=== PATIENT | male | born 1980 | race Caucasian/White ===

== ENCOUNTER 2017-09-19 03:44 | Emergency (ER) | payer SELFPAY ==
[2017-09-19] MEDS ORDERED: Adacel (T-DAP) 0.5 ML VIAL ONE (04:05)
[2017-09-19] MEDS ORDERED: Lidocaine 1% PF 5 ML VIAL ONE (04:10)
[2017-09-19] MEDS ORDERED: Triple Antibiotic Oint 1 GM Packet ONE (04:28)
--- NOTE | 2017-09-19 07:33 | RAD ---
RIGHT HAND 3 VIEWS: HISTORY: Pain. Injury. FINDINGS: Joint space is preserved. No fracture. No cortical irregularity or periosteal reaction. IMPRESSION: Unremarkable 3 views right hand. POS: [facility]
== END 2017-09-19 05:00 ==
LOC: ERS 03:44
DX: S61.411A Laceration without foreign body of right hand, initial encounter (principal); F17.210 Nicotine dependence, cigarettes, uncomplicated; Z79.899 Other long term (current) drug therapy; W25.XXXA Contact with sharp glass, initial encounter
CPT/HCPCS: 12002; 90471; 90715; J2001